=== PATIENT | male | born 1950 | race Caucasian/White ===

== ENCOUNTER 2018-10-09 20:02 | Observation (INO) ==
[2018-10-09] MEDS ORDERED: Aspirin 81 MG TAB.CHEW PO ONE (20:32)
[2018-10-09] MEDS ORDERED: Nitroglycerin 0.4 MG TAB.SUBL SL PRN (20:49)
--- NOTE | 2018-10-09 20:53 | Emergency Department Note ---
Disposition Clinical Impression: Unstable angina pectoris, Atrial fibrillation with controlled ventricular response Disposition: Admitted As Inpatient Condition: Fair Forms: ED Satisfaction Letter Time of Disposition: 21:52 Chest Pain HPI - General Chief Complaint: ED Chest Pain Stated Complaint: Chest Pain / Pressure Time Seen by Provider: 10/09/18 20:14 Source: patient Mode of arrival: ambulatory Limitations: no limitations Vital Signs Reviewed: Yes Nursing Notes Reviewed: Yes - History of Present Illness HPI Narrative: 68-year-old male history of A. fib on Coumadin as well as rate control presents to the emergency department with chest pain. Said he had a heart catheterization done approximately 3 years ago which was normal. His INR has been normal. Said that yesterday he was mowing the lawn and had all of a sudden started having chest pain. Got better when he did take a rest but definitely was worse never he exerted himself. Today he mowed the lawn again and again had the chest pain. He actually went and sat down to rest and then the pain nearly went away. At that time is approximately half hour later he got a sudden onset of chest pain described as 8 out of 10 felt like someone was squeezing his chest he was not short of breath. Patient otherwise is having no other complaints at this time. nEver having blood clots or unilateral leg swelling up in a long car or plane rides Not on any hormones. Patient otherwise has no other complaint this time Severity scale (1-10): 5 - Related Data Home Medications Medication Instructions Recorded Confirmed Aspirin Enteric Coated [Aspirin EC] 81 mg PO DAILY 01/09/15 02/29/16 Omeprazole [PriLOSEC] 20 mg PO DAILY 01/09/15 02/29/16 Tamsulosin [Flomax] 0.4 mg PO DAILY 01/09/15 02/29/16 Warfarin [Coumadin] 5 mg PO SUMOWEFRSA 01/09/15 02/29/16 Furosemide [Lasix] 20 mg PO DAILY 02/19/16 02/29/16 Latanoprost [Xalatan] 1 drop OP HS 02/29/16 02/29/16 Nitroglycerin 0.3 mg SL AD PRN 02/29/16 02/29/16 Warfarin [Coumadin] 7.5 mg PO TUTH 02/29/16 02/29/16 Previous Rx's Medication Instructions Recorded Carvedilol [Coreg] 25 mg PO BIDWM #60 tablet 02/19/16 Lisinopril [Zestril] 2.5 mg PO DAILY #30 02/19/16 Albuterol Sulfate [Albuterol 1 puff IH Q8HR #2 inhaler 03/01/16 Inhaler] Sulfamethoxazole/Trimeth DS 1 each PO BID 28 Days tablet 04/12/16 [Bactrim DS] Allergies Allergy/AdvReac Type Severity Reaction Status Date / Time peanut Allergy Swelling Verified 04/09/16 15:07 of Lip/Tongue/Throat All systems ED: reviewed and negative except as stated. Review of Systems: As Per HPI Chest Pain PMH - Past Medical History Medical history: Reports: arthritis, atrial fibrillation, cardiomyopathy, GERD, hypertension Surgical history: Reports: other ([facility] last month) Psychiatric history: Reports: PTSD - Social History Smoking Status: Never smoker Alcohol use: Reports: none Drug use: Reports: none Physical Exam - General Limitations: no limitations General appearance: alert, in no apparent distress - Head Head exam: atraumatic, normocephalic, normal inspection - Eye Eye exam: Present: normal appearance, PERRL, EOMI - ENT ENT exam: normal exam, normal oropharynx, mucous membranes moist - Neck Neck exam: Present: normal inspection, full ROM, trachea midline - Chest Chest inspection: Present: normal inspection, symmetric chest wall rise - Respiratory Respiratory exam: Present: normal lung sounds bilaterally. Absent: respiratory distress, wheezes, accessory muscle use, prolonged expiratory phase - Cardiovascular Cardiovascular exam: Present: regular rate, normal rhythm, normal heart sounds - Abdominal Exam Abdominal exam: Present: soft, Non-Tender, normal bowel sounds. Absent: tenderness, distention, guarding, rebound, rigidity - Extremities Exam Extremities exam: Present: normal inspection, full ROM. Absent: tenderness, pedal edema - Back Exam Back exam: Present: normal inspection, full ROM. Absent: tenderness, CVA tenderness (R), CVA tenderness (L) - Neurological Exam Neurological exam: Present: alert, oriented X3 - Skin Skin exam: Present: warm, dry, intact, normal color Course Course Narrative: We have basic labs including CBC, BMP, troponin we also get INR to see how his Coumadin is doing. We EKG and chest x-ray. Patient okay with this plan. Patient will receive aspirin as well as nitroglycerin here in the emergency department. Disposition most likely his admission for further evaluation. Vital Signs Temperature 98 F 10/09/18 20:24 Pulse Rate 84 10/09/18 20:24 Respiratory Rate 18 10/09/18 20:24 Blood Pressure 137/94 10/09/18 20:24 O2 Sat by Pulse Oximetry 98 10/09/18 20:24 Temperature 98 F 10/09/18 20:24 Pulse Rate 84 10/09/18 20:24 Respiratory Rate 18 10/09/18 20:24 Blood Pressure 137/94 10/09/18 20:24 O2 Sat by Pulse Oximetry 98 10/09/18 20:24 Oxygen Delivery Oxygen Delivery Room Air Chest Pain - MDM Narrative Medical decision making narrative: 8-year-old male presented to the emergency department with chest pain. Troponin was negative EKG had no acute findings did show atrial fibrillation. INR was stable at 2.5. No other acute findings. Did give him nitroglycerin as well as aspirin. Patient said the chest pain got better after the nitroglycerin but not completely gone. Spoke with the hospitalist Dr. Melendez who agreed to admit the patient to their service. Patient is admitted in stable condition. Chest X-Ray 10/09/18 20:30 IMPRESSION: No acute cardiopulmonary disease. D/ / Yves Barr MD / Yves Barr MD Interpreting Provider: Yves Barr MD - Medical Records Medical records reviewed: Yes I reviewed the patient's medical records. - Lab Data Lab results reviewed: Yes I reviewed the patient's lab results. Result diagrams: 10/09/18 20:15 10/09/18 20:15 Lab Results 10/09/18 10/09/18 10/09/18 Range/Units 20:15 20:15 20:15 WBC 7.6 (4.3-11.1) K/mcL RBC 4.64 (4.19-5.50) M/mcL Hgb 13.6 (12.9-16.9) g/dL Hct 41.2 (37.5-50.1) % MCV 88.8 (83.0-100.0) fL MCH 29.3 (28.0-33.3) pg MCHC 33.0 (31.6-35.5) g/dL RDW 13.0 (11.5-14.5) % Plt Count 228 (140-400) K/mcL MPV 10.1 (9.4-12.4) fL Immature Gran % 0.5 (0-4) % Seg Neutrophils % 52.0 % Lymphocytes % 34.5 % Monocytes % 9.7 % Eosinophils % 2.8 % Basophils % 0.5 % Neutrophils # 4.0 (1.6-8.9) K/mcL Lymphocytes # 2.6 (0.6-4.6) K/mcL Monocytes # 0.7 (0.0-1.3) K/mcL Eosinophils # 0.2 (0.0-0.6) K/mcL Basophils # 0.0 (0.0-0.2) K/mcL PT 28.2 H (9.4-12.1) Seconds INR 2.5 Sodium 136 (136-145) mEq/L Potassium 4.4 (3.5-5.1) mEq/L Chloride 103 (98-107) mEq/L Carbon Dioxide 28 (23-29) mEq/L BUN 21 (8-23) mg/dL Creatinine 1.28 (0.70-1.30) mg/dL Est GFR ( Amer) > 60 (> 60) Est GFR (Non-Af Amer) 56 L (> 60) BUN/Creatinine Ratio 16 (6-26) Glucose 91 (70-105) mg/dL Calculated Osmolality 285 (280-300) Calcium 9.0 (8.6-10.3) mg/dL Troponin I < 0.03 (< 0.04) ng/mL - Radiology Data Radiology results reviewed: Yes I reviewed the patient's radiology results. - EKG Data EKG attestation: Yes I reviewed and interpreted this EKG. EKG results narrative: EKG done at 2009 review myself and the attending shows atrial fibrillation a rate of 87, QRS 121, QTC 42. There is no acute ST changes no acute T-wave changes no other signs of ischemia. No signs of hypertrophy, heart strain, heart block. No WPW/Brugada/HOCM. EKG is unchanged from previous also showing atrial fibrillation that was done 07/27/16 Heart Score - Score History: Moderately Suspicious EKG: Normal Age: Greater than 65 Risk Factors: Equal/Greater than 3 risk factor or history of atherosclerotic disease Troponin: Less than normal limit HEART Score Total: 5
--- NOTE | 2018-10-09 20:54 | Emergency Department Note ---
Disposition Clinical Impression: Unstable angina pectoris, Atrial fibrillation with controlled ventricular response Disposition: Admitted As Inpatient Condition: Fair General Adult HPI - General Chief complaint: ED Chest Pain Stated complaint: Chest Pain / Pressure Time Seen by Provider: 10/09/18 20:14 Source: patient Mode of arrival: ambulatory Limitations: no limitations - History of Present Illness Pain Scale: 5 - Related Data Home Medications Medication Instructions Recorded Confirmed Aspirin Enteric Coated [Aspirin EC] 81 mg PO DAILY 01/09/15 02/29/16 Omeprazole [PriLOSEC] 20 mg PO DAILY 01/09/15 02/29/16 Tamsulosin [Flomax] 0.4 mg PO DAILY 01/09/15 02/29/16 Warfarin [Coumadin] 5 mg PO SUMOWEFRSA 01/09/15 02/29/16 Furosemide [Lasix] 20 mg PO DAILY 02/19/16 02/29/16 Latanoprost [Xalatan] 1 drop OP HS 02/29/16 02/29/16 Nitroglycerin 0.3 mg SL AD PRN 02/29/16 02/29/16 Warfarin [Coumadin] 7.5 mg PO TUTH 02/29/16 02/29/16 Previous Rx's Medication Instructions Recorded Carvedilol [Coreg] 25 mg PO BIDWM #60 tablet 02/19/16 Lisinopril [Zestril] 2.5 mg PO DAILY #30 02/19/16 Albuterol Sulfate [Albuterol 1 puff IH Q8HR #2 inhaler 03/01/16 Inhaler] Sulfamethoxazole/Trimeth DS 1 each PO BID 28 Days tablet 04/12/16 [Bactrim DS] Allergies Allergy/AdvReac Type Severity Reaction Status Date / Time peanut Allergy Swelling Verified 04/09/16 15:07 of Lip/Tongue/Throat Past Medical History - Past Medical History Medical history: Reports: arthritis, atrial fibrillation, cardiomyopathy, GERD, hypertension Surgical history: Reports: other ([facility] last month) Psychiatric history: Reports: PTSD - Social History Smoking Status: Never smoker Smokeless Tobacco Status: Yes Alcohol use: Reports: none Drug use: Reports: none Physical Exam - General Limitations: no limitations General appearance: alert, in no apparent distress Course Vital Signs Temperature 98 F 10/09/18 20:24 Pulse Rate 84 10/09/18 20:24 Respiratory Rate 18 10/09/18 20:24 Blood Pressure 137/94 10/09/18 20:24 O2 Sat by Pulse Oximetry 98 10/09/18 20:24 Temperature 98 F 10/09/18 20:24 Pulse Rate 84 10/09/18 20:24 Respiratory Rate 18 10/09/18 20:24 Blood Pressure 137/94 10/09/18 20:24 O2 Sat by Pulse Oximetry 98 10/09/18 20:24 Oxygen Delivery Oxygen Delivery Room Air Medical Decision Making - Lab Data Result diagrams: 10/09/18 20:15 10/09/18 20:15 Lab Results 10/09/18 10/09/18 10/09/18 Range/Units 20:15 20:15 20:15 WBC 7.6 (4.3-11.1) K/mcL RBC 4.64 (4.19-5.50) M/mcL Hgb 13.6 (12.9-16.9) g/dL Hct 41.2 (37.5-50.1) % MCV 88.8 (83.0-100.0) fL MCH 29.3 (28.0-33.3) pg MCHC 33.0 (31.6-35.5) g/dL RDW 13.0 (11.5-14.5) % Plt Count 228 (140-400) K/mcL MPV 10.1 (9.4-12.4) fL Immature Gran % 0.5 (0-4) % Seg Neutrophils % 52.0 % Lymphocytes % 34.5 % Monocytes % 9.7 % Eosinophils % 2.8 % Basophils % 0.5 % Neutrophils # 4.0 (1.6-8.9) K/mcL Lymphocytes # 2.6 (0.6-4.6) K/mcL Monocytes # 0.7 (0.0-1.3) K/mcL Eosinophils # 0.2 (0.0-0.6) K/mcL Basophils # 0.0 (0.0-0.2) K/mcL PT 28.2 H (9.4-12.1) Seconds INR 2.5 Sodium 136 (136-145) mEq/L Potassium 4.4 (3.5-5.1) mEq/L Chloride 103 (98-107) mEq/L Carbon Dioxide 28 (23-29) mEq/L BUN 21 (8-23) mg/dL Creatinine 1.28 (0.70-1.30) mg/dL Est GFR ( Amer) > 60 (> 60) Est GFR (Non-Af Amer) 56 L (> 60) BUN/Creatinine Ratio 16 (6-26) Glucose 91 (70-105) mg/dL Calculated Osmolality 285 (280-300) Calcium 9.0 (8.6-10.3) mg/dL Troponin I < 0.03 (< 0.04) ng/mL Attestation Statement - Attestation Attestation: I examined this patient and my medical decision-making was reviewed with the Resident Physician. I agree with the documented findings, disposition and treatment plan as described except to the extent set forth below. Patient presents to the ED with chief clinic chest pressure. His been having some intermittent episodes of her few days. This morning he had some. He laid down and went away. He went out to some riding [place]. When he came back in it felt like someone hit him in the chest with a 2 x 4. Pain has almost completely resolved at this time. No cardiac history. He states it heart catheterization about 4 years ago that showed a 20% blockage. Patient is in no distress on examination with clear lungs. Heart has a regular. Plan. Cardiac workup. Likely admission for further chronic workup. Nitroglycerin trial. Workup negative. Admitted for further cardiac workup. EKG showed A. fib unchanged from baseline. Reviewed with the resident. Chest X-Ray 10/09/18 20:30 IMPRESSION: No acute cardiopulmonary disease. D/ / Yves Barr MD / Yves Barr MD Interpreting Provider: Yves Barr MD
[2018-10-09 20:55] LABS: BUN/Creatinine Ratio 16 (6-26); Blood Urea Nitrogen 21 mg/dL (8-23); Carbon Dioxide 28 mEq/L (23-29); Chloride 103 mEq/L (98-107); Glucose 91 mg/dL (70-105); Osmolality,Calculated 285 (280-300); Potassium 4.4 mEq/L (3.5-5.1); Sodium 136 mEq/L (136-145); eGFR For Non-African Americans 56 (> 60)
[2018-10-09 20:56] LABS: Troponin I < 0.03 ng/mL (< 0.04)
[2018-10-09 20:57] LABS: Basophils % 0.5 %; Eosinophils # 0.2 K/mcL (0.0-0.6); Eosinophils % 2.8 %; Hematocrit 41.2 % (37.5-50.1); Hemoglobin 13.6 g/dL (12.9-16.9); Immature Granulocytes % 0.5 % (0-4); Lymphocytes # 2.6 K/mcL (0.6-4.6); Lymphocytes % 34.5 %; Mean Corpuscular Hemoglobin 29.3 pg (28.0-33.3); Mean Corpuscular Volume 88.8 fL (83.0-100.0); Mean Platelet Volume 10.1 fL (9.4-12.4); Monocytes # 0.7 K/mcL (0.0-1.3); Monocytes % 9.7 %; Platelet Count 228 K/mcL (140-400); Red Blood Count 4.64 M/mcL (4.19-5.50)
[2018-10-09 21:04] LABS: INR 2.5; Prothrombin Time 28.2 Seconds (9.4-12.1)
[2018-10-10] MEDS ORDERED: Naloxone 0.4 MG/ML INJ IVP PRN (00:34)
--- NOTE | 2018-10-10 01:15 | Internal Med History&Physical ---
Date of Encounter: 10/10/18 Time of Encounter: 01:10 Internal Medicine - H&P: HPI Chief complaint: Chest pain History of present illness: Mr. Moralez is a 68 year old male with a history of a nonischemic cardiomyopathy with EF 30%, atrial fibrillation on Coumadin, nonobstructive CAD, hypertension, and GERD who presented with chest pain. Patient reports several episodes of chest pain the first of which occurred on Thursday while digging up some dirt in his backyard. Pain described as across the chest, pressure-like, nonradiating. Symptoms persisted for several hours despite resting in bed and taking his sublingual nitroglycerin. He again reports an episode of chest pressure the following day while moving furniture around the house. Patient denies any lightheadedness, nausea or diaphoresis. Patient reports another episode this time more atypical in nature described as an epigastric stabbing pain 8 out of 10 in intensity. Denies any association with food and states that it was not similar to his acid reflux pain. On arrival patient was mildly hypertensive with systolic blood pressure in the 140s. Initial laboratory workup was unremarkable including a negative troponin. EKG showed atrial fibrillation rate controlled at 87 bpm. Chest x-ray was unremarkable. Patient received loading dose of aspirin and nitroglycerin in the ED and reports that pain did improve after receiving the nitroglycerin but did not completely resolve. On my assessment patient was lying in bed in no acute distress. Currently denies any chest pain. Past Med Surg Social Fam HX - Past Medical History Medical history: arthritis, atrial fibrillation, cardiomyopathy, GERD, hypertension Additional medical history: enlarged prostate, lung nodules Psychiatric history: PTSD - Past Surgical History Surgical History: other ([facility] last month) Additional surgical history: NONE prostate biopsy, no bladder cancer, colonoscopy heart cath with no stents, cardioversion - Social History Smoking Status: Never smoker Smokeless Tobacco Status: Yes Alcohol use: none Drug use: none - Family History Mother Living Status: Still Living Hx Family Cardiac Disorders: Yes (Pacemaker) Hx Family Respiratory Disorders: No Hx Family Cancer: No Hx Family GI Disorders: No Hx Family Genitourinary Disorders: No Hx Family Endocrine Disorder: No Hx Family Musculoskeletal Disorders: No Hx Family Neuromuscular Disorders: No Hx Family Neurologic Disorders: No Hx Family HEENT Disorders: No Hx Family Autoimmune Disorders: No Hx Family Reproductive Disorders: No Hx Family Psychosocial Disorders: No Hx Family Medical Disorders: No Father Living Status: Age at : 76 Cause of : CA Hx Family Cardiac Disorders: No Hx Family Respiratory Disorders: No Hx Family Cancer: Yes (Kidney mets to bladder and bone) Hx Family GI Disorders: No Hx Family Genitourinary Disorders: No Hx Family Endocrine Disorder: No Hx Family Musculoskeletal Disorders: No Hx Family Neuromuscular Disorders: No Hx Family Neurologic Disorders: No Hx Family HEENT Disorders: No Hx Family Autoimmune Disorders: No Hx Family Reproductive Disorders: No Hx Family Psychosocial Disorders: No Hx Family Medical Disorders: No Internal Medicine - H&P: Meds Aspirin Enteric Coated [Aspirin EC] 81 mg PO DAILY 01/09/15 [History] Omeprazole [PriLOSEC] 20 mg PO DAILY 01/09/15 [History] Tamsulosin [Flomax] 0.4 mg PO DAILY 01/09/15 [History] Warfarin [Coumadin] 5 mg PO SUMOTUWEFRSA 01/09/15 [History] Carvedilol [Coreg] 25 mg PO BIDWM #60 tablet 02/19/16 [Rx] Furosemide [Lasix] 20 mg PO DAILY 02/19/16 [History] Lisinopril [Zestril] 2.5 mg PO DAILY #30 02/19/16 [Rx] Latanoprost [Xalatan] 1 drop OP HS 02/29/16 [History] Nitroglycerin 0.3 mg SL AD PRN 02/29/16 [History] Warfarin [Coumadin] 7.5 mg PO TH 02/29/16 [History] Albuterol Sulfate [Albuterol Inhaler] 1 puff IH Q8HR #2 inhaler 03/01/16 [Rx] Sulfamethoxazole/Trimeth DS [Bactrim DS] 1 each PO BID 28 Days tablet 04/12/16 [Rx] Digoxin [Lanoxin] 0.125 mg PO QOD 10/09/18 [History] Finasteride [Proscar] 5 mg PO DAILY 10/09/18 [History] Allergy/AdvReac Type Severity Reaction Status Date / Time peanut Allergy Swelling Verified 04/09/16 15:07 of Lip/Tongue/Throat All Systems PM: A 10-system review of systems was performed and is negative for pertinent findings except as documented above in the HPI. - Constitutional Constitutional: no chills, no fever(s), no night sweats - EENT Eyes: no change in vision, no discharge, no pain, no photophobia Ears: no ear discharge, no ear pain, no tinnitus Nose, mouth and throat: no dysphagia, no nasal discharge, no neck pain, no sore throat - Cardiovascular Cardiovascular ROS IM: no chest pain, no diaphoresis, no dyspnea, no lightheadedness, no palpitations, no syncope - Respiratory Respiratory: no cough, no dyspnea, no wheezing, no excessive phlegm production - Gastrointestinal Gastrointestinal: no abdominal pain, no diarrhea, no hematemesis, no hematochezia, no melena, no nausea, no vomiting - Musculoskeletal Musculoskeletal ROS IM: no numbness, no tingling - Integumentary Integumentary IM: no rash, no unusual bruising - Neurological Neurological ROS: no confusion, no convulsions, no focal weakness, no numbness, no tingling, no tremor(s) - Hematologic/Lymphatic Hematologic/Lymphatic: no easy bruising - Constitutional Vitals: Temp Pulse Resp BP Pulse Ox 97.5 F L 80 16 144/97 97 10/09/18 23:14 10/09/18 23:14 10/09/18 23:14 10/09/18 23:14 10/09/18 23:14 Exam: General: Alert and oriented 3 lying in bed in no acute distress Skin:Normal color, no rash, no lesions. HEENT:EOM, pupils equal, round and reactive. Cardiovascular: Irregularly irregular rhythm. Normal S1, S2. No JVD. Pulse regular. Lungs:Normal breath sounds, no wheezes or crackles. Abdomen:Soft, non-tender, no rigidity. Extremities:No deformity, no edema or tenderness, no joint swelling or clubbing. Neurological:Normal cognition and motor skills. Pulses:Carotid and radial pulses normal +2. Rest of the physical exam is non contributory Internal Med - H&P Results - Labs CBC & Chem 7: 10/10/18 01:51 10/10/18 01:51 Labs: Short CBC 10/09/18 Range/Units 20:15 WBC 7.6 (4.3-11.1) K/mcL Hgb 13.6 (12.9-16.9) g/dL Hct 41.2 (37.5-50.1) % Plt Count 228 (140-400) K/mcL Neutrophils # 4.0 (1.6-8.9) K/mcL BMP 10/09/18 20:15 Sodium 136 Potassium 4.4 Chloride 103 Carbon Dioxide 28 BUN 21 Creatinine 1.28 Glucose 91 Calcium 9.0 Cardiac Enzymes 10/09/18 Range/Units 20:15 Troponin I < 0.03 (< 0.04) ng/mL - Impressions ITS Impressions Chest X-Ray 10/09/18 20:30 IMPRESSION: No acute cardiopulmonary disease. D/ / Yves Barr MD / Yves Barr MD Interpreting Provider: Yves Barr MD - Assessment and Plan (1) Chest pain Current Visit: No Status: Acute Assessment and plan: Patient presents with chest pain with both typical and atypical features. Initial troponin negative. EKG shows atrial fibrillation with no acute ischemic changes. Patient currently chest pain-free. Unclear if unstable angina. -We will continue on telemetry -Trend troponin -Sublingual nitroglycerin as needed -We will obtain echocardiogram -We will defer to cardiology for further management prior to ordering a nuclear stress test given unclear etiology and inability to rule out unstable angina. Furthermore patient is on beta geovani and digoxin Qualifiers: Chest pain type: unspecified Qualified Code(s): R07.9 - Chest pain, unspecified (2) CAD (coronary artery disease) Current Visit: No Status: Acute Assessment and plan: [facility] 12/2015 showed mild nonobstructive CAD. Continue medical management. Qualifiers: Coronary Disease-Associated Artery/Lesion type: [place] artery [place] vs. transplanted heart: [place] heart Associated angina: without angina Qualified Code(s): I25.10 - Atherosclerotic heart disease of [place] coronary artery witho ut angina pectoris (3) Atrial fibrillation Current Visit: No Status: Chronic Assessment and plan: History of atrial fibrillation currently rate controlled on beta geovani and anticoagulation with an INR 2.5. Will hold beta geovani in the event of possible stress test. Continue warfarin. Qualifiers: Atrial fibrillation type: paroxysmal Qualified Code(s): I48.0 - Paroxysmal atrial fibrillation (4) Cardiomyopathy Current Visit: No Status: Chronic Assessment and plan: History of nonischemic cardiomyopathy currently on beta geovani, digoxin and Lasix. Echocardiogram in 2017 showed an EF of 50% with mild concentric left ventricular hypertrophy and indeterminate diastolic function due to atrial fibrillation; this appears to be improved from prior EF of 30%. No significant valvular dysfunction. We will obtain repeat echocardiogram in the setting of recurrent chest pain. We will continue beta geovani, digoxin and Lasix for now Qualifiers: Cardiomyopathy type: unspecified Qualified Code(s): I42.9 - Cardiomyopathy, unspecified (5) HTN (hypertension) Current Visit: No Status: Chronic Qualifiers: Hypertension type: essential hypertension Qualified Code(s): I10 - Essential (primary) hypertension (6) DVT prophylaxis Current Visit: No Status: Acute Assessment and plan: Blood pressure stable. Resume home antihypertensives. - Time Spent With Patient Total time spent is greater than 50% in coordination of care (as documented) at patient's floor/unit and/or counseling patient:
[2018-10-10] MEDS ORDERED: Nitroglycerin 0.4 MG TAB.SUBL SL PRN (01:16)
[2018-10-10 02:14] LABS: Basophils % 0.5 %; Eosinophils # 0.2 K/mcL (0.0-0.6); Eosinophils % 2.3 %; Hematocrit 38.3 % (37.5-50.1); Immature Granulocytes % 0.3 % (0-4); Lymphocytes # 2.9 K/mcL (0.6-4.6); Mean Corpuscular HGB Conc 33.9 g/dL (31.6-35.5); Mean Corpuscular Hemoglobin 29.9 pg (28.0-33.3); Mean Platelet Volume 9.7 fL (9.4-12.4); Monocytes # 0.8 K/mcL (0.0-1.3); Monocytes % 10.1 %; Neutrophils # 3.9 K/mcL (1.6-8.9); Platelet Count 192 K/mcL (140-400); Red Blood Count 4.35 M/mcL (4.19-5.50); Red Cell Distribution Width 13.1 % (11.5-14.5); Segmented Neutrophils % 49.8 %
[2018-10-10 02:24] LABS: INR 2.6; Prothrombin Time 29.1 Seconds (9.4-12.1)
[2018-10-10 02:32] LABS: BUN/Creatinine Ratio 17 (6-26); Blood Urea Nitrogen 19 mg/dL (8-23); Calcium 8.8 mg/dL (8.6-10.3); Carbon Dioxide 26 mEq/L (23-29); Chloride 106 mEq/L (98-107); Glucose 109 mg/dL (70-105); Osmolality,Calculated 289 (280-300); Potassium 3.9 mEq/L (3.5-5.1); Sodium 138 mEq/L (136-145); eGFR For Non-African Americans > 60 (> 60)
--- NOTE | 2018-10-10 08:15 | Cardiology Consult Note ---
Date of Encounter: 10/10/18 Time of Encounter: 07:50 Assessment and Plan (1) Chest pain Current Visit: No Status: Acute Ruling out for NH. HTN. On coumadin for AF, making PCI/DAPT less attractive. Start antianginal/HTN tx with toprol xl and imdur 30mg daily. Stress test for risk stratification; if stress test does not show TID or reversible perfusion defect (ie ischemia), then would proceed with medical management. If recurrent symptoms despite normotensive on antianginal medical therapy, consider [facility]. Qualifiers: Chest pain type: unspecified Qualified Code(s): R07.9 - Chest pain, unspe cified (2) Nonischemic cardiomyopathy Current Visit: Yes Status: Acute Toprol XL, ACEI as tolerated (3) Mild CAD Current Visit: Yes Status: Acute [id number] [facility]. Aspirin, BB, statin Discussion w patient/family: The assessment and plan as outlined above was discussed with the patient and/or family members who expressed understanding and agreement. All questions were answered. Thank you for involving us in the care of your patient. Please call with any questions. History of Present Illness Consult date: 10/10/18 Consult reason: chest pain Chief complaint: chest pain History of present illness: Mr. Moralez is a 68 year old male with nonischemic cardiomyopathy with EF 30% previously, atrial fibrillation on Coumadin, mild nonobstructive CAD by [facility] 2014 hypertension, amiodarone pulmonary toxicity and GERD who presented with chest pain. Patient reports several episodes of chest pain the first of which occurred on Tu while being active. Pain described as across the chest, pressure-like, nonradiating. Symptoms persisted for several hours despite resting in bed and taking his sublingual nitroglycerin. He again reports an episode of chest pressure the following day while moving furniture around the house. He has differing types of chest pain. Hx per pt and medical records Past Med Surg Social Fam HX - Past Medical History Medical history: arthritis, atrial fibrillation, cardiomyopathy, GERD, hypertension Additional medical history: enlarged prostate, lung nodules Psychiatric history: PTSD - Past Surgical History Surgical History: other ([facility] last month) Additional surgical history: NONE prostate biopsy, no bladder cancer, colonoscopy heart cath with no stents, cardioversion - Social History Smoking Status: Never smoker Smokeless Tobacco Status: Yes Alcohol use: none Drug use: none - Family History Mother Living Status: Still Living Hx Family Cardiac Disorders: Yes (Pacemaker) Hx Family Respiratory Disorders: No Hx Family Cancer: No Hx Family GI Disorders: No Hx Family Genitourinary Disorders: No Hx Family Endocrine Disorder: No Hx Family Musculoskeletal Disorders: No Hx Family Neuromuscular Disorders: No Hx Family Neurologic Disorders: No Hx Family HEENT Disorders: No Hx Family Autoimmune Disorders: No Hx Family Reproductive Disorders: No Hx Family Psychosocial Disorders: No Hx Family Medical Disorders: No Father Living Status: Age at : 76 Cause of : CA Hx Family Cardiac Disorders: No Hx Family Respiratory Disorders: No Hx Family Cancer: Yes (Kidney mets to bladder and bone) Hx Family GI Disorders: No Hx Family Genitourinary Disorders: No Hx Family Endocrine Disorder: No Hx Family Musculoskeletal Disorders: No Hx Family Neuromuscular Disorders: No Hx Family Neurologic Disorders: No Hx Family HEENT Disorders: No Hx Family Autoimmune Disorders: No Hx Family Reproductive Disorders: No Hx Family Psychosocial Disorders: No Hx Family Medical Disorders: No Medications and Allergies Aspirin Enteric Coated [Aspirin EC] 81 mg PO DAILY 01/09/15 [History] Omeprazole [PriLOSEC] 20 mg PO DAILY 01/09/15 [History] Tamsulosin [Flomax] 0.4 mg PO DAILY 01/09/15 [History] Warfarin [Coumadin] 5 mg PO SUMOTUWEFRSA 01/09/15 [History] Carvedilol [Coreg] 25 mg PO BIDWM #60 tablet 02/19/16 [Rx] Furosemide [Lasix] 20 mg PO DAILY 02/19/16 [History] Lisinopril [Zestril] 2.5 mg PO DAILY #30 02/19/16 [Rx] Latanoprost [Xalatan] 1 drop OP HS 02/29/16 [History] Nitroglycerin 0.3 mg SL AD PRN 02/29/16 [History] Warfarin [Coumadin] 7.5 mg PO TH 02/29/16 [History] Albuterol Sulfate [Albuterol Inhaler] 1 puff IH Q8HR #2 inhaler 03/01/16 [Rx] Sulfamethoxazole/Trimeth DS [Bactrim DS] 1 each PO BID 28 Days tablet 04/12/16 [Rx] Digoxin [Lanoxin] 0.125 mg PO QOD 10/09/18 [History] Finasteride [Proscar] 5 mg PO DAILY 10/09/18 [History] Allergy/AdvReac Type Severity Reaction Status Date / Time peanut Allergy Swelling Verified 04/09/16 15:07 of Lip/Tongue/Throat All Systems Review: The remainder of the systems were reviewed and are negative - Constitutional Constitutional: no chills, no fever(s) - EENT Eyes: no blurred vision, no loss of vision Nose, mouth and throat: no epistaxis, no odynophagia - Cardiovascular Cardiovascular: chest pain with exertion, no paroxysmal nocturnal dyspnea - Respiratory Respiratory: no hemoptysis, no wheezing - Gastrointestinal Gastrointestinal: no hematemesis, no hematochezia - Musculoskeletal Musculoskeletal: no abnormal gait, no myalgias - Integumentary Integumentary: no rash, no unusual bruising - Neurological Neurological: no syncope, no tingling - Psychiatric Psychiatric: no hallucinations, no panic attacks - Hematological/Lymphatic Hematologic/Lymphatic: no easy bleeding, no easy bruising Physical Examination General: Conversant, No Apparent Distress HEENT: Atraumatic, Normocephaly Neck: No JVD Cardiac: Other (irr irr s1 s2 (stress test)) Neuro: Alert and responsive, No focal deficits noted Abdomen: Soft, Non-Tender Skin: No rashes noted on visualized skin Extremities: No Edema Results 10/10/18 01:51 10/10/18 01:51 Lab Results 10/09/18 10/09/18 10/09/18 20:15 20:15 20:15 WBC 7.6 Hgb 13.6 Hct 41.2 Plt Count 228 INR 2.5 Sodium 136 Potassium 4.4 Chloride 103 Carbon Dioxide 28 BUN 21 Creatinine 1.28 Glucose 91 Calcium 9.0 Troponin I < 0.03 10/10/18 10/10/18 10/10/18 01:51 01:51 01:51 WBC 7.8 Hgb 13.0 Hct 38.3 Plt Count 192 INR Sodium 138 Potassium 3.9 Chloride 106 Carbon Dioxide 26 BUN 19 Creatinine 1.14 Glucose 109 H Calcium 8.8 Troponin I < 0.03 10/10/18 01:51 WBC Hgb Hct Plt Count INR 2.6 Sodium Potassium Chloride Carbon Dioxide BUN Creatinine Glucose Calcium Troponin I - EKG Interpretation EKG results cardiology: personally reviewed (af) Consult Discharge Plan - Plan Referrals: NONE,PCP [Primary Care Provider] -
[2018-10-10] MEDS: Aspirin Enteric Coated 81 MG Tablet PO SCH (09:00)
[2018-10-10] MEDS: Finasteride 5 MG TABLET PO SCH (09:00)
[2018-10-10] MEDS ORDERED: *HR* Digoxin 0.125 MG TABLET PO SCH (09:00)
[2018-10-10] MEDS ORDERED: Isosorbide MONOnitrate (24 HR) 30 MG TAB.ER.24H PO SCH (09:00)
[2018-10-10] MEDS: Furosemide 20 MG TABLET PO SCH (09:00)
[2018-10-10] MEDS ORDERED: Metoprolol XL (24 HR) Succ 25 MG TAB.ER.24H PO SCH (09:00)
[2018-10-10] MEDS ORDERED: Regadenoson 0.4 MG/5 ML SYRINGE IVP ONE (10:37)
[2018-10-10] MEDS ORDERED: Perflutren Lipid Microsphere 1.3 ML in 0.9 % Sodium Chloride 8.7 ML IVP ONE (13:33)
[2018-10-10] MEDS: Metoprolol XL (24 HR) Succ 25 MG TAB.ER.24H PO SCH (15:38)
[2018-10-10] MEDS: Isosorbide MONOnitrate (24 HR) 30 MG TAB.ER.24H PO SCH (15:38)
[2018-10-10] MEDS ORDERED: *HR* Warfarin 5 MG TABLET PO SCH (18:00)
[2018-10-10] MEDS ORDERED: Latanoprost 2.5 ML BOTTLE BOTH EYES SCH (21:00)
[2018-10-10] MEDS ORDERED: Acetaminophen 325 MG TABLET PO PRN (22:48)
[2018-10-11] MEDS: Furosemide 20 MG TABLET PO SCH (09:13)
[2018-10-11] MEDS: Metoprolol XL (24 HR) Succ 25 MG TAB.ER.24H PO SCH (09:13)
[2018-10-11] MEDS: Finasteride 5 MG TABLET PO SCH (09:14)
[2018-10-11] MEDS: Isosorbide MONOnitrate (24 HR) 30 MG TAB.ER.24H PO SCH (09:14)
[2018-10-11] MEDS: Aspirin Enteric Coated 81 MG Tablet PO SCH (09:14)
--- NOTE | 2018-10-11 10:07 | Electrocardiograph Report ---
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
[2018-10-11 11:59] VITALS: BP 105/71
--- NOTE | 2018-10-11 12:30 | Cardiology Progress Note ---
Date of Encounter: 10/11/18 Time of Encounter: 10:00 Assessment and Plan (1) Chest pain Current Visit: No Status: Acute Per cardiology: -Admitted with chest pain. -Troponins negative. -No acute ischemic ECG changes noted. -STress test neative for ishemia or infarct. -TTE with LVEF 50%, no wall motion abnormalities. -Imdur was added. -Patient denies chest pain today. -Recommend patient walk in halls, if no chest pain, patient is stable for dis charge home from cardiology standpoint. -Will arrange outpateint follow up. Qualifiers: Chest pain type: unspecified Qualified Code(s): R07.9 - Chest pain, unspecified (2) Nonischemic cardiomyopathy Current Visit: Yes Status: Acute Per cardiology: -History of on NICM, with recovered LVEF. -TTE 2014 with mild CAD. -On Toprol XL, ACEI. -Euvolemic on exam. -Continue current medical therapy. (3) Mild CAD Current Visit: Yes Status: Acute Per cardiology: -[id number] [facility]. Aspirin, BB, statin (4) Atrial fibrillation Current Visit: No Status: Chronic Per cardiology: -Known history of a.fib. -ON dig, and BB, HR controlled. -On coumadin for anticoagulation. -Continue current medical therapy. Qualifiers: Atrial fibrillation type: chronic Qualified Code(s): I48.2 - Chronic atrial fibrillation Discussion w patient/family: The assessment and plan as outlined above was discussed with the patient and/or family members who expressed understanding and agreement. All questions were answered. Thank you for involving us in the care of your patient. Please call with any questions. Discussed and reviewed with . Subjective Principal diagnosis: Chest pain Interval history: Patient denies chest pain today. Objective Vital Signs, Last 4 Hours Temp Pulse Resp BP Pulse Ox 10/11/18 11:55 97.6 F 81 16 105/71 99 General: Conversant, No Apparent Distress HEENT: Atraumatic, Normocephaly, Mucus Membranes Moist Neck: No JVD, Normal carotid pulses Cardiac: Normal S1 and S2, No Murmur, Other (Irregularly irregular) Lungs: Normal Breath Sounds, No Wheeze, Rales, Rhonchi Neuro: Alert and responsive, No focal deficits noted Abdomen: Soft, Non-Tender Skin: No rashes noted on visualized skin Musculoskeletal: No Chest Wall Tenderness Extremities: No Clubbing, No Cyanosis, No Edema, Normal Pulses Results 10/10/18 01:51 10/10/18 01:51 Lab Results Impressions Echocardiogram 10/10/18 01:55 Impressions: LVEF 50%. Indeterminate diastolic function. Definity echo contrast was used. Normal right ventricular structure and function. Moderate bi-atrial enlargement. Mild mitral regurgitation. Mild tricuspid regurgitation. No pulmonary hypertension. Left Ventricular Wall Motion: Rest Echo Findings All wall segments showed normal motion. Findings: Study Quality * Technically adequate exam. ECG Findings * Atrial fibrillation. Left Ventricle * LVEF 50%. * Indeterminate diastolic function. * Normal LV chamber size and wall thickness. * Definity echo contrast was used. Right Ventricle * Normal right ventricular structure and function. Left Atrium * Moderately dilated left atrium. Right Atrium * Moderately dilated right atrium. Aortic Valve * No aortic regurgitation. * No aortic stenosis. * Aortic valve not well visualized. Mitral Valve * Normal mitral valve structure. * No mitral stenosis. * Mild mitral regurgitation. Tricuspid Valve * Tricuspid valve not well visualized. * Mild tricuspid regurgitation. Pulmonic Valve * Pulmonic valve is not well visualized. * No pulmonic stenosis. * No pulmonic regurgitation. Pulmonary Artery * Pulmonary artery not well visualized. Aorta * Normally sized aortic root. Pericardium * There is no pericardial effusion present. Interatrial Septum * Interatrial septum not well evaluated. IVC * The IVC is not well evaluated. Active Medications Acetaminophen (Tylenol) 650 mg PO Q6HR PRN PRN Reason: Pain Stop: 04/11/19 22:49 Aspirin (Aspirin Ec) 81 mg PO DAILY [facility] Stop: 04/11/19 09:01 Last Admin: 10/11/18 09:14 Dose: 81 mg Documented by: Atorvastatin Calcium (Lipitor) 40 mg PO HS [facility] Stop: 04/11/19 21:01 Last Admin: 10/10/18 22:25 Dose: 40 mg Documented by: Digoxin (Lanoxin) 0.125 mg PO QOD [place] Stop: 04/11/19 09:01 Last Admin: 10/10/18 09:00 Dose: Not Given Documented by: Finasteride (Proscar) 5 mg PO DAILY [facility]; Protocol Stop: 04/11/19 09:01 Last Admin: 10/11/18 09:14 Dose: 5 mg Documented by: Furosemide (Lasix) 20 mg PO DAILY [facility] Stop: 04/11/19 09:01 Last Admin: 10/11/18 09:13 Dose: 20 mg Documented by: Isosorbide Mononitrate (Imdur) 30 mg PO DAILY [facility] Stop: 04/11/19 15:01 Last Admin: 10/11/18 09:14 Dose: 30 mg Documented by: Latanoprost (Xalatan) 1 drop [facility]; Protocol Stop: 04/11/19 21:01 Last Admin: 10/10/18 22:25 Dose: 1 drop Documented by: Lisinopril (Zestril) 2.5 mg PO DAILY [facility]; Protocol Stop: 04/11/19 09:01 Last Admin: 10/11/18 09:13 Dose: 2.5 mg Documented by: Metoprolol Succinate (Toprol Xl) 25 mg PO DAILY [facility] Stop: 04/11/19 15:01 Last Admin: 10/11/18 09:13 Dose: 25 mg Documented by: Naloxone HCl (Narcan) 0.4 mg IVP Q2MPRN PRN PRN Reason: SEE COMMENTS Stop: 04/11/19 00:35 Nitroglycerin (Nitroglycerin) 0.4 mg SL Q5MIN PRN PRN Reason: Chest Pain Stop: 04/10/19 20:50 Last Admin: 10/09/18 21:26 Dose: 0.4 mg Documented by: Nitroglycerin (Nitroglycerin) 0.3 mg SL AD PRN PRN Reason: Chest Pain Omeprazole (Prilosec) 20 mg PO 0630 [facility]; Protocol Stop: 04/11/19 06:31 Last Admin: 10/11/18 05:51 Dose: 20 mg Documented by: Tamsulosin HCl (Flomax) 0.4 mg PO HS [facility]; Protocol Stop: 04/11/19 21:01 Last Admin: 10/10/18 22:25 Dose: 0.4 mg Documented by: Warfarin Sodium (Coumadin) 5 mg PO SUMOTUWEFRSA [facility] Stop: 04/11/19 18:01 Last Admin: 10/10/18 16:46 Dose: 5 mg Documented by: Warfarin Sodium (Coumadin) 7.5 mg PO Th@1800 [facility] Stop: 04/15/19 18:01 Laboratory Tests 10/09/18 10/10/1819 20:15 01:51 01:51 Hgb 13.0 INR Creatinine Troponin I < 0.03 < 0.03 10/10/18 10/10/18 10/10/18 01:51 01:51 12:02 Hgb INR 2.6 Creatinine 1.14 Troponin I < 0.03 - Imaging and Cardiology Chest Xray: report reviewed Stress Test: report reviewed Echo: report reviewed - EKG Interpretation EKG results cardiology: other (Telemetry reviewed with average HR previous 12 hours noted to be 78, a.fib. PVCs noted.) Consult Discharge Plan - Plan Referrals: Doe Crowder MD [Partnered Physician] -
--- NOTE | 2018-10-11 12:56 | Discharge Summary ---
- NOTES TO OUTPATIENT PROVIDER Notes to Outpatient Provider: f/u with Cardiology within 2 weeks. f/u with PCP within a week. Orders not resulted at time of discharge: Pending orders 10/10/18 09:22 NM elzbieta perf SPECT multi [NM] Routine Date of Encounter: 10/11/18 Time of Encounter: 12:52 - Discharge Diagnosis (1) Atrial fibrillation Priority: Secondary Status: Chronic Qualifiers: Atrial fibrillation type: chronic Qualified Code(s): I48.2 - Chronic atrial fibrillation (2) Cardiomyopathy Priority: Secondary Status: Chronic Qualifiers: Cardiomyopathy type: unspecified Qualified Code(s): I42.9 - Cardiomyopathy, unspecified (3) CAD (coronary artery disease) Priority: Primary Status: Acute Qualifiers: Coronary Disease-Associated Artery/Lesion type: [place] artery [place] vs. transplanted heart: [place] heart Associated angina: without angina Qualified Code(s): I25.10 - Atherosclerotic heart disease of [place] coronary artery without angina pectoris (4) Chest pain Priority: Primary Status: Acute Qualifiers: Chest pain type: unspecified Qualified Code(s): R07.9 - Chest pain, unspecified (5) DVT prophylaxis Priority: Primary Status: Acute (6) HTN (hypertension) Priority: Secondary Status: Chronic Qualifiers: Hypertension type: essential hypertension Qualified Code(s): I10 - Essential (primary) hypertension Hospital course: Mr. Moralez is a 68 year old male with a history of a nonischemic cardiomyopathy with EF 30%, atrial fibrillation on Coumadin, nonobstructive CAD, hypertension, and GERD who presented with chest pain. Patient reports several episodes of chest pain the first of which occurred on Thursday while digging up some dirt in his backyard. Pain described as across the chest, pressure-like, nonradiating. Symptoms persisted for several hours despite resting in bed and taking his sublingual nitroglycerin. He again reports an episode of chest pressure the following day while moving furniture around the house. Patient denies any lightheadedness, nausea or diaphoresis. Patient reports another episode this time more atypical in nature described as an epigastric stabbing pain 8 out of 10 in intensity. Denies any association with food and states that it was not similar to his acid reflux pain. On arrival patient was mildly hypertensive with systolic blood pressure in the 140s. Initial laboratory workup was unremarkable including a negative troponin. EKG showed atrial fibrillation rate controlled at 87 bpm. Chest x-ray was unremarkable. Patient received loading dose of aspirin and nitroglycerin in the ED and reports that pain did improve after receiving the nitroglycerin but did not completely resolve. Further tests showed negative serial troponin, unremarkable EKG and the telemetry monitoring without acute ST-T change, unremarkable echocardiogram with normal LV ejection fraction, and a negative stress test. However, patient reported the chest pain while in the middle of stress test. Cardiology was consulted, was started on isosorbide. Discharge today, patient has been ambulating without complaint of chest pain. Cardiology recommended discharge the patient home with outpatient follow-up. He is discharged home today, was instructed to follow up with cardiology and PCP as scheduled. Discharge discussed with: patient, family Time spent discussing smoking cessation with patient: more than 10 minutes - Time Spent with Patient Total time spent providing and/or coordinating discharge services: Time spent: Greater than 30 minutes - Discharge Medications Prescriptions: New Isosorbide MONOnitrate (24 HR) [Imdur] 30 mg PO DAILY #30 tab.er.24h Continued Aspirin Enteric Coated [Aspirin EC] 81 mg PO DAILY Warfarin [Coumadin] 5 mg PO SUMOTUWEFRSA Tamsulosin [Flomax] 0.4 mg PO DAILY Omeprazole [PriLOSEC] 20 mg PO DAILY Carvedilol [Coreg] 25 mg PO BIDWM #60 tablet Lisinopril [Zestril] 2.5 mg PO DAILY #30 Furosemide [Lasix] 20 mg PO DAILY Warfarin [Coumadin] 7.5 mg PO TH Latanoprost [Xalatan] 1 drop OP HS Nitroglycerin 0.3 mg SL AD PRN PRN Reason: Chest Pain Albuterol Sulfate [Albuterol Inhaler] 1 puff IH Q8HR #2 inhaler Sulfamethoxazole/Trimeth DS [Bactrim Ds] 1 each PO BID 28 Days tablet Finasteride [Proscar] 5 mg PO DAILY Digoxin [Lanoxin] 0.125 mg PO QOD Home Medications: Aspirin Enteric Coated [Aspirin EC] 81 mg PO DAILY 01/09/15 [History] Omeprazole [PriLOSEC] 20 mg PO DAILY 01/09/15 [History] Tamsulosin [Flomax] 0.4 mg PO DAILY 01/09/15 [History] Warfarin [Coumadin] 5 mg PO SUMOTUWEFRSA 01/09/15 [History] Carvedilol [Coreg] 25 mg PO BIDWM #60 tablet 02/19/16 [Rx] Furosemide [Lasix] 20 mg PO DAILY 02/19/16 [History] Lisinopril [Zestril] 2.5 mg PO DAILY #30 02/19/16 [Rx] Latanoprost [Xalatan] 1 drop OP HS 02/29/16 [History] Nitroglycerin 0.3 mg SL AD PRN 02/29/16 [History] Warfarin [Coumadin] 7.5 mg PO TH 02/29/16 [History] Albuterol Sulfate [Albuterol Inhaler] 1 puff IH Q8HR #2 inhaler 03/01/16 [Rx] Sulfamethoxazole/Trimeth DS [Bactrim Ds] 1 each PO BID 28 Days tablet 04/12/16 [Rx] Digoxin [Lanoxin] 0.125 mg PO QOD 10/09/18 [History] Finasteride [Proscar] 5 mg PO DAILY 10/09/18 [History] Isosorbide MONOnitrate (24 HR) [Imdur] 30 mg PO DAILY #30 tab.er.24h 10/11/18 [Rx] Allergies/Adverse Reactions: Allergy/AdvReac Type Severity Reaction Status Date / Time peanut Allergy Swelling Verified 04/09/16 15:07 of Lip/Tongue/Throat Date of admission: 10/09/18 21:54 Primary care physician: PCP NONE Consults: 10/10/18 02:02 Consult to Cardiology [CONS] Routine Comment: Consulting Provider: [facility] [place] Reason for Consult: Atypical chest pain. Cannot rule out unstable angina. Call Completed: No Anticipated date of discharge: 10/11/18 - Constitutional Vitals: Temp Pulse Resp BP Pulse Ox 97.6 F 81 16 105/71 99 10/11/18 11:55 10/11/18 11:55 10/11/18 11:55 10/11/18 11:55 10/11/18 11:55 General appearance: Present: A&O X 3 Exam: General: Alert and oriented 3 lying in bed in no acute distress Skin:Normal color, no rash, no lesions. HEENT:EOM, pupils equal, round and reactive. Cardiovascular: Irregularly irregular rhythm. Normal S1, S2. No JVD. Pulse regular. Lungs:Normal breath sounds, no wheezes or crackles. Abdomen:Soft, non-tender, no rigidity. Extremities:No deformity, no edema or tenderness, no joint swelling or clubbing. Neurological:Normal cognition and motor skills. Pulses:Carotid and radial pulses normal +2. Rest of the physical exam is non contributory - Patient Status Disposition: Home, Self-Care Condition: Fair Functional capacity at discharge: independent ambulation Overall status at discharge: patient is progressing back to baseline - Discharge Instructions Follow Up With: Doe Crowder MD [Partnered Physician] - - Diet and Activity Activity: increase activity as tolerated Diet: low fat, low cholesterol, low salt diet
[2018-10-14] MEDS ORDERED: *HR* Warfarin 7.5 MG TABLET PO SCH (18:00)
== END 2018-10-11 13:44 | disposition home or self-care (01) ==
LOC: 3BNU 20:02 → EMEROOARM 20:02 → 3BNU 22:51
PROVIDERS: ADMIT Family Medicine; ATTEND Family Medicine